=== PATIENT | female | born 1995 | race Two or more races ===

== ENCOUNTER 2017-08-03 10:15 | Emergency (ER) | payer MEDICAID ==
[~2017-08-03] VITALS: Ht 162.6 cm; Wt 61.0 kg
[2017-08-03 10:18] VITALS: BP 102/66
== END 2017-08-03 11:29 | disposition home or self-care (01) ==
LOC: ED 11:00
DX: N63.0 Unspecified lump in unspecified breast (principal)
CPT/HCPCS: 99281

== ENCOUNTER → 2017-08-03 | Outpatient (CLI) | payer MEDICAID | LOC: CFH 11:52 | PROVIDERS: ATTEND Thoracic Surgery (Cardiothoracic Vascular Surgery) | DX: N63.21 Unspecified lump in the left breast, upper outer quadrant (principal) | CPT/HCPCS: 76641 ==

== ENCOUNTER → 2018-03-29 | Outpatient (CLI) | payer MEDICAID ==
[~2018-03-29] MED LIST: LIDOCAINE 1%, 20ML ONE; LIDOCAINE 1%-EPI 1:100K, 20ML ONE; SODIUM BICARBONATE 4.0%, 5ML ONE
== END | disposition home or self-care (01) ==
LOC: CFH 09:35
PROVIDERS: ATTEND Radiology Diagnostic Radiology
DX: D24.2 Benign neoplasm of left breast (principal)
CPT/HCPCS: 19083; 88305; J3490

== ENCOUNTER 2018-04-14 12:08 | Emergency (ER) | payer MEDICAID | END 2018-04-14 13:18 | disposition left against medical advice (07) | LOC: ED 13:12 | DX: Z53.21 Procedure and treatment not carried out due to patient leaving prior to being seen by health care provider (principal) ==